=== PATIENT | female | born 1955 | race Caucasian/White ===

== ENCOUNTER 2019-01-14 17:43 | Inpatient (IN) | payer OTHER ==
[~2019-01-14] VITALS: Ht 170.2 cm; Wt 98.4 kg
[~2019-01-14 17:43] MED LIST: Aldactone100 MG PO; Inderal40 MG PO; LEVSOD50 PO; Lasix40 MG PO
[2019-01-14 19:11] LABS: BASOPHILS ABSOLUTE AUTO 0.15 K/mm3 (0.00-0.23); BASOPHILS PERCENT AUTO 2 % (0-2); EOSINOPHILS ABSOLUTE AUTO 0.05 K/mm3 (0.00-0.68); EOSINOPHILS PERCENT AUTO 1 % (0-6); Hematocrit 38.8 % (33.0-51.0); Hemoglobin 13.3 g/dL (11.5-16.0); IMMATURE GRAN ABSOLUTE AUTO 0.02 K/mm3 (0.00-0.10); IMMATURE GRAN PERCENT AUTO 0 % (0-1); LYMPHOCYTES ABSOLUTE AUTO 1.52 K/mm3 (0.84-5.20); LYMPHOCYTES PERCENT AUTO 21 % (21-46); MONOCYTES PERCENT AUTO 7 % (4-13); Mean Corpuscular HGB 32.9 pg (26.0-34.0); Mean Corpuscular HGB Conc 34.3 g/dL (31.5-36.5); Mean Corpuscular Volume 96 fL (80-100); Mean Platelet Volume 9.1 fL (9.1-12.4); NEUTROPHILS ABSOLUTE AUTO 5.09 K/mm3 (1.96-9.15); NEUTROPHILS PERCENT AUTO 70 % (41-73); Platelet Count 115 K/mm3 (150-400); RDW Coefficient Variation 14.6 % (11.7-14.2); RDW Standard Deviation 51.7 fL (35.1-46.3); Red Blood Cell Count 4.04 M/mm3 (3.80-5.20); White Blood Cell Count 7.33 K/mm3 (4.00-11.30)
[2019-01-14 19:30] LABS: Alanine Aminotransfer (ALT/SGP 48 U/L (12-78); Albumin, Blood 3.3 g/dL (3.4-5.0); Albumin/Globulin Ratio 0.6 (0.8-1.8); Alk Phos 98 U/L (50-136); Anion Gap 12 mmol/L (6-16); Aspartate Aminotrans (AST/SGOT 78 U/L (12-37); Blood Urea Nitrogen 9 mg/dL (8-24); Bun/Creatinine Ratio 16.6 (12.0-20.0); CO2, Blood 23 mmol/L (21-32); Calcium, Blood 8.6 mg/dL (8.5-10.1); Chloride, Blood 100 mmol/L (98-108); Creatinine, Blood 0.54 mg/dL (0.40-1.00); Ethanol (Alcohol), Blood, Med 60 mg/dL; Globulin, Blood 5.3 g/dL (2.2-4.0); Glomerular Filtration Rate >60 (60-); Glucose, Blood 110 mg/dL (70-99); Potassium, Blood 3.3 mmol/L (3.5-5.5); Sodium, Blood 135 mmol/L (136-145); Total Protein, Blood 8.6 g/dL (6.4-8.2)
[2019-01-14] MEDS ORDERED: FURO20 PO (21:48)
[2019-01-14] MEDS ORDERED: SPIR25 PO (21:48)
[2019-01-14] MEDS ORDERED: POTCHL20ER PO (21:48)
[2019-01-14] MEDS ORDERED: MAGN84 PO (21:49)
[2019-01-15] MEDS ORDERED: Omeprazole20 M1 PO (13:06)
[2019-01-15] MEDS ORDERED: Oyst-Cal-500500 MG PO (13:07)
[2019-01-15] MEDS ORDERED: THERA1 EACH PO (13:07)
[2019-01-15] MEDS ORDERED: VITAMIN C500 M1 PO (13:08)
[2019-01-15] MEDS ORDERED: Vitamin B Comple1 EA PO (13:09)
[2019-01-15] MEDS ORDERED: B-1100 MG PO (13:11)
[2019-01-15] MEDS ORDERED: Ibuprofen Ib200 MG PO (13:13)
--- NOTE | 2019-01-15 14:58 | NUR ---
pt arrived to [facility] 7 via gurney from ED, report from [facility]. pt able to stand and transfer herself to the bed, she is a/ox3, pleasant and cooperative with care, follows commands well, denies pain at this time, lungs are clear t/o, resp even and unlabored, no cough noted, hrr, tele in place running sr per monitor, see strip, no edema noted to b/l le, ppp+1, cap refill <3sec, vs stable, afebrile, iv site x2, sites are clear and patent, btx4, abd round soft nontender, voids without diff, skin c/w/d, maew, yina, oriented to room layout call system call light in reach.
--- NOTE | 2019-01-15 17:50 | NUR ---
pt sleeping when left undisturbed, wakes easily. tremors are minimal at this time. no complaints or changes call light in reach.
[2019-01-16 04:08] LABS: BASOPHILS ABSOLUTE AUTO 0.09 K/mm3 (0.00-0.23); BASOPHILS PERCENT AUTO 2 % (0-2); EOSINOPHILS ABSOLUTE AUTO 0.41 K/mm3 (0.00-0.68); EOSINOPHILS PERCENT AUTO 9 % (0-6); Hematocrit 32.1 % (33.0-51.0); Hemoglobin 10.9 g/dL (11.5-16.0); IMMATURE GRAN ABSOLUTE AUTO 0.01 K/mm3 (0.00-0.10); IMMATURE GRAN PERCENT AUTO 0 % (0-1); LYMPHOCYTES ABSOLUTE AUTO 1.55 K/mm3 (0.84-5.20); LYMPHOCYTES PERCENT AUTO 34 % (21-46); MONOCYTES ABSOLUTE AUTO 0.49 K/mm3 (0.16-1.47); MONOCYTES PERCENT AUTO 11 % (4-13); Mean Corpuscular HGB 33.7 pg (26.0-34.0); Mean Platelet Volume 9.5 fL (9.1-12.4); NEUTROPHILS ABSOLUTE AUTO 2.03 K/mm3 (1.96-9.15); NEUTROPHILS PERCENT AUTO 44 % (41-73); Platelet Count 70 K/mm3 (150-400); RDW Coefficient Variation 14.8 % (11.7-14.2); RDW Standard Deviation 53.7 fL (35.1-46.3); Red Blood Cell Count 3.23 M/mm3 (3.80-5.20); White Blood Cell Count 4.58 K/mm3 (4.00-11.30)
[2019-01-16 04:14] LABS: Mean Corpuscular Volume 99 fL (80-100)
[2019-01-16 04:29] LABS: Alanine Aminotransfer (ALT/SGP 31 U/L (12-78); Albumin, Blood 2.5 g/dL (3.4-5.0); Albumin/Globulin Ratio 0.6 (0.8-1.8); Alk Phos 74 U/L (50-136); Anion Gap 8 mmol/L (6-16); Aspartate Aminotrans (AST/SGOT 48 U/L (12-37); Blood Urea Nitrogen 10 mg/dL (8-24); Bun/Creatinine Ratio 14.6 (12.0-20.0); CO2, Blood 25 mmol/L (21-32); Calcium, Blood 8.2 mg/dL (8.5-10.1); Chloride, Blood 106 mmol/L (98-108); Creatinine, Blood 0.69 mg/dL (0.40-1.00); Glomerular Filtration Rate >60 (60-); Glucose, Blood 103 mg/dL (70-99); Potassium, Blood 3.8 mmol/L (3.5-5.5); Sodium, Blood 139 mmol/L (136-145); Total Protein, Blood 6.5 g/dL (6.4-8.2)
--- NOTE | 2019-01-16 06:31 | NUR ---
SHIFT SUMMARY PT ALERT AND ORIENTED X 3 THROUGHOUT SHIFT. SHE HAD NO TREMORS, ANXIETY, OR OTHER SYMPTOMS OF ACUTE WITHDRAWL. CIWA WAS 0 T/O SHIFT. PT SLEPT WELL DURING THE NIGHT AND WAS INDEPENDENT IN THE ROOM. PT WALKS WELL WITH FWW AND HER GAIT WAS OBSERVED TO BE STEADY AND WELL BALANCED. PT DENIED ANY UNMET NEEDS AND SHE USED THE CALL LIGHT APPROPRIATELY. PT HAD SOME NAUSEA EARLY IN THE SHIFT FOR WHICH SHE WAS PROVIDED ORDERED ANTI EMETIC. PT HAD NO ACUTE CHANGES TO VITALS DURING THE NIGHT. PT HAS BED IN THE LOWEST POSITION, CALL LIGHT IN REACH AND 2X SIDE RAILS IN PLACE. PT WILL CONTINUE TO BE MONITORED UNTIL HANDOFF TO DAYSHIFT RN.
[2019-01-16] MEDS ORDERED: FOLI1 PO (14:30)
[2019-01-16] MEDS ORDERED: ONDA4ODT MM (14:31)
--- NOTE | 2019-01-16 15:30 | NUR ---
PT ALERT AND ORIENTED. VS STABLE THROUGHOUT SHIFT. PT TO DISCHARGE HOME AND REFERRED TO DETOX FACILITY. IV TAKEN OUT AND INTACT. DISCHARGE INFORMATION PROVIDED ALONG WITH EDUCATION ABOUT ALCOHOL WITHDRAWAL AND NUTRITION. PT DENIES ANY QUESTIONS. PT TAKEN OUT BY WHEELCHAIR.
--- NOTE | 2019-01-16 15:35 | NUR ---
Adcance Directive Education conducted. Patient was lying in bed with family present in the room. I asked patient if she had interest in education surrounding the topic of advance directive and she stated that she did want to know more about it. I explained the importance and went through the advance directive booklet and explained how each section worked. I also explained about the notary and the process of filing it in the medical record. I asked if she had any questions and she said that she did not and she asked if I could bring her more booklets for other family members, and I did.
== END 2019-01-16 16:14 | disposition home or self-care (01) | DRG 897 ==
LOC: ER 17:43 → PCU 22:48 → ERHOLD 22:48 → PCU 01-15 14:16
PROVIDERS: Family Medicine; Physician Assistant; ADMIT Hospitalist
DX: F10.239 Alcohol dependence with withdrawal, unspecified (principal); I10 Essential (primary) hypertension; E87.6 Hypokalemia; E03.9 Hypothyroidism, unspecified; F41.9 Anxiety disorder, unspecified; Z87.891 Personal history of nicotine dependence; Z79.899 Other long term (current) drug therapy
CPT/HCPCS: 36415; 80053; 83690; 84484; 85025; 93005; 93010; 96365; 96366; 96367; 96375; 96376; 99285-25; G0008; G0480; J1650; J2060; J2405; J3411; J3475; J3480; J7042

== ENCOUNTER 2019-03-04 08:32 | Day surgery (SDC) | payer OTHER ==
[~2019-03-04 08:32] MED LIST changes: +B-1100 MG PO; +FOLI1 PO; +FURO20 PO; +Ibuprofen Ib200 MG PO; +MAGN84 PO; +ONDA4ODT MM; +Omeprazole20 M1 PO; +Oyst-Cal-500500 MG PO; +POTCHL20ER PO; +SPIR25 PO; +THERA1 EACH PO; +VITAMIN C500 M1 PO; +Vitamin B Comple1 EA PO
== END 2019-03-04 23:02 | disposition home or self-care (01) ==
LOC: MOI US 08:32 → MOI MAM 09:00 → MOI US 09:00
DX: C50.911 Malignant neoplasm of unspecified site of right female breast (principal); Z17.0 Estrogen receptor positive status [ER+]
CPT/HCPCS: 19083; 76642; 77065; 88305; 88342; 88360; A4648

== ENCOUNTER 2019-04-08 08:15 | Day surgery (SDC) | payer OTHER ==
[~2019-04-08 08:15] MED LIST changes: +ALBU90OI; +Inderal40 MG; +PRED20
== END 2019-04-08 22:36 | disposition home or self-care (01) ==
LOC: MOI US 08:15
DX: C50.211 Malignant neoplasm of upper-inner quadrant of right female breast (principal)
CPT/HCPCS: 19285; 77065

== ENCOUNTER 2019-04-12 07:55 | Day surgery (SDC) | payer OTHER ==
[~2019-04-12] VITALS: Ht 170.2 cm; Wt 102.6 kg
--- NOTE | 2019-04-12 11:42 | NUR ---
04/12/19 1142 Steffanie Kramer PT C/O 12/16 PAIN IN HER RIGHT BREAST UPON ARRIVAL TO SDU. ICE PACK APPLIED. PT EATING PUDDING AT THIS TIME. RN WILL MEDICATE WITH PO MEDS REQUESTED BY PT ONCE SHE GETS SOMETHING IN HER STOMACH. PT CONVERSATING WITH SISTER AND AT CHAIRSIDE. BREAST BINDER IN PLACE. PT DENIES NAUSEA AT THIS TIME.
== END 2019-04-12 12:33 | disposition home or self-care (01) ==
LOC: ORSCSDS 07:55 → RAD 08:00 → ORSCSDS 08:00
PROVIDERS: Surgery
PROC: 07B50ZX Excision of Right Axillary Lymphatic, Open Approach, Diagnostic (ICD-10-PCS; principal; 2019-04-12 10:15)
PROC: 0HBT0ZZ Excision of Right Breast, Open Approach (ICD-10-PCS; principal; 2019-04-12 10:15)
DX: C50.211 Malignant neoplasm of upper-inner quadrant of right female breast (principal); D36.0 Benign neoplasm of lymph nodes; I10 Essential (primary) hypertension; J45.909 Unspecified asthma, uncomplicated; K70.30 Alcoholic cirrhosis of liver without ascites; E03.9 Hypothyroidism, unspecified; E66.9 Obesity, unspecified; Z68.35 Body mass index [BMI] 35.0-35.9, adult; F17.210 Nicotine dependence, cigarettes, uncomplicated; Z79.899 Other long term (current) drug therapy
CPT/HCPCS: 76098; 78195; 88307; 88342; A9520; J0690; J1885; J2250; J2370; J2704; J3010; J7120; Q9968

== ENCOUNTER 2021-09-15 12:44 | Inpatient (IN) | payer OTHER, MEDICARE ==
[~2021-09-15] VITALS: Ht 170.2 cm; Wt 117.1 kg
[~2021-09-15 12:44] MED LIST changes: +CALCIUM GLUCONA PO; -FURO20 PO; -Inderal40 MG; -LEVSOD50 PO; +MAGNESIUM OXID400 M1 PO; -Omeprazole20 M1 PO; -SPIR25 PO; +THERA-D2000 UNIT PO
[2021-09-15 14:20] LABS: BASOPHILS ABSOLUTE AUTO 0.07 K/mm3 (0.00-0.23); BASOPHILS PERCENT AUTO 0 % (0-2); EOSINOPHILS ABSOLUTE AUTO 0.34 K/mm3 (0.00-0.68); EOSINOPHILS PERCENT AUTO 2 % (0-6); Hematocrit 30.2 % (33.0-51.0); Hemoglobin 11.2 g/dL (11.5-16.0); IMMATURE GRAN ABSOLUTE AUTO 0.14 K/mm3 (0.00-0.10); IMMATURE GRAN PERCENT AUTO 1 % (0-1); LYMPHOCYTES PERCENT AUTO 6 % (21-46); MONOCYTES ABSOLUTE AUTO 1.23 K/mm3 (0.16-1.47); MONOCYTES PERCENT AUTO 7 % (4-13); Mean Corpuscular HGB Conc 37.1 g/dL (31.5-36.5); Mean Corpuscular Volume 100 fL (80-100); NEUTROPHILS ABSOLUTE AUTO 13.86 K/mm3 (1.96-9.15); NEUTROPHILS PERCENT AUTO 83 % (41-73); Platelet Count 107 K/mm3 (150-400); RDW Coefficient Variation 14.3 % (11.7-14.2); RDW Standard Deviation 51.8 fL (35.1-46.3); Red Blood Cell Count 3.03 M/mm3 (3.80-5.20); White Blood Cell Count 16.64 K/mm3 (4.00-11.30)
[2021-09-15 14:40] LABS: Alanine Aminotransfer (ALT/SGP 43 U/L (12-78); Albumin, Blood 1.9 g/dL (3.4-5.0); Albumin/Globulin Ratio 0.4 (0.8-1.8); Alk Phos 102 U/L (50-136); Anion Gap 9 mmol/L (6-16); Aspartate Aminotrans (AST/SGOT 82 U/L (12-37); Bilirubin, Total 4.5 mg/dL (0.1-1.0); Blood Urea Nitrogen 25 mg/dL (8-24); Bun/Creatinine Ratio 10.7 (12.0-20.0); CO2, Blood 30 mmol/L (21-32); Chloride, Blood 81 mmol/L (98-108); Creatinine, Blood 2.34 mg/dL (0.40-1.00); Ethanol (Alcohol), Blood, Med <3 mg/dL; Globulin, Blood 4.8 g/dL (2.2-4.0); Glomerular Filtration Rate 21 (60-); Glucose, Blood 114 mg/dL (70-99); Potassium, Blood 4.6 mmol/L (3.5-5.5); Sodium, Blood 120 mmol/L (136-145); Total Protein, Blood 6.7 g/dL (6.4-8.2); Troponin I <0.015 ng/mL (0.000-0.040)
[2021-09-15 14:49] LABS: SARS-Cov-2 (COVID-19) PCR, MMC NEGATIVE (NEGATIVE)
[2021-09-15 15:20] LABS: Source, Urine Catheter
[2021-09-15 15:25] LABS: Appearance, Urine Clear (Clear); Blood, Urine 1+ (Neg); Color, Urine Amber (P-Yellow); Glucose Qualitative, Urine Neg (Neg); Ketones, Urine 1+ (Neg); Leukocyte Esterase, Urine 1+ (Neg); Nitrite, Urine Neg (Neg); Protein, Urine 1+ (Neg); Specific Gravity, Urine 1.015 (1.003-1.022); Urobilinogen, Urine 2+ (Normal)
[2021-09-15 16:01] LABS: Bilirubin, Urine 2+ (Neg)
[2021-09-15 16:08] LABS: Bacteria Mod /hpf; Hyaline Casts 0-2 /lpf (0-2); Red Blood Cells, Urine 0-2 /hpf (0-2); Squamous Epithelial Cells Few /hpf (Few)
[2021-09-15] MEDS ORDERED: FURO40 PO (16:29)
[2021-09-15] MEDS ORDERED: Inderal40 MG PO (16:30)
[2021-09-15] MEDS ORDERED: EUTHYROX50 MCG PO (16:30)
[2021-09-15] MEDS ORDERED: ALDACTONE100 MG PO (16:30)
[2021-09-15] MEDS ORDERED: AMLO5 PO (16:31)
[2021-09-15] MEDS ORDERED: ANASTROZOLE1 M6 PO (16:31)
[2021-09-15] MEDS ORDERED: Omeprazole20 M1 PO (17:22)
[2021-09-15 19:09] LABS: Creatine Kinase MB 3.5 ng/mL (0.0-3.6)
[2021-09-15 19:14] LABS: Bun/Creatinine Ratio 11.1 (12.0-20.0); Calcium, Blood 7.9 mg/dL (8.5-10.1); Creatinine, Blood 2.35 mg/dL (0.40-1.00); Potassium, Blood 4.4 mmol/L (3.5-5.5)
[2021-09-15 22:56] LABS: Bun/Creatinine Ratio 11.9 (12.0-20.0); Calcium, Blood 7.7 mg/dL (8.5-10.1); Creatinine, Blood 2.36 mg/dL (0.40-1.00); Potassium, Blood 4.4 mmol/L (3.5-5.5)
[2021-09-16 03:39] LABS: Albumin, Blood 1.6 g/dL (3.4-5.0); Albumin/Globulin Ratio 0.4 (0.8-1.8); Bilirubin, Total 3.3 mg/dL (0.1-1.0); Bun/Creatinine Ratio 12.6 (12.0-20.0); Calcium, Blood 7.7 mg/dL (8.5-10.1); Creatinine, Blood 2.22 mg/dL (0.40-1.00); Free Thyroxine 1.52 ng/dL (0.70-1.60); Globulin, Blood 4.4 g/dL (2.2-4.0); Potassium, Blood 4.2 mmol/L (3.5-5.5); Thyroid Stimulating Hormone 2.44 uIU/mL (0.360-4.800)
[2021-09-16 06:48] LABS: Bun/Creatinine Ratio 13.7 (12.0-20.0); Calcium, Blood 7.7 mg/dL (8.5-10.1); Creatinine, Blood 1.97 mg/dL (0.40-1.00); Potassium, Blood 4.1 mmol/L (3.5-5.5)
--- NOTE | 2021-09-16 10:39 | NUR ---
URINARY RETENTION PT STATES SHE HAS NOT URINATED ALL NIGHT. BLADDER SCAN REVEALLED 454 CC AFTER ATTEMPTING TO VOID WITH NO SUCCESS. DR. MAHAN NOTIFIED AND ORDERED TO RECHECK BLADDER VOLUME IN 2 HOURS AND INSERT INDWELLING CATHETER IF BLADDER VOLLUME IS OVER 500.
[2021-09-16 12:40] LABS: Source, Urine Catheter
[2021-09-16 12:51] LABS: Appearance, Urine Clear (Clear); Blood, Urine 1+ (Neg); Color, Urine Amber (P-Yellow); Glucose Qualitative, Urine Neg (Neg); Ketones, Urine Neg (Neg); Leukocyte Esterase, Urine 1+ (Neg); Nitrite, Urine Neg (Neg); Protein, Urine Neg (Neg); Specific Gravity, Urine 1.015 (1.003-1.022); Urobilinogen, Urine 3+ (Normal)
[2021-09-16 13:00] LABS: Bilirubin, Urine 2+ (Neg)
[2021-09-16 13:05] LABS: Red Blood Cells, Urine 0-2 /hpf (0-2); Squamous Epithelial Cells Few /hpf (Few)
[2021-09-16 13:06] LABS: Bacteria Few /hpf
--- NOTE | 2021-09-16 16:47 | NUR ---
SHIFT SUMMARY QUIROZ INSERTED TODAY FOR URINARY RETENTION. DARK/CAROL URINE IN RETURN. PT REPOSITIONED T/O THE DAY TO HELP WITH WOUND HEALING AND COMFORT. IV FLUIDS INCREASED TO 200ML/HR. PT TOLERATING THIS SO FAR. PT PLEASANT ANND RESTING IN BED CURRENTLY. NO OTHER ACUTE CHANGES IN ASSESSMENT AT THIS TIME. VS REVIEWED.
[2021-09-17 06:12] LABS: Calcium, Blood 7.7 mg/dL (8.5-10.1); Creatinine, Blood 1.16 mg/dL (0.40-1.00); Potassium, Blood 3.9 mmol/L (3.5-5.5)
--- NOTE | 2021-09-17 06:35 | NUR ---
SHIFT SUMMARY PT RESTING ON BED QUIETLY. NO ACUTE DISTRESS AT THIS TIME. PT BEING CLEAN . CALL LIGHT DERREK REACH
[2021-09-17 15:01] LABS: Bun/Creatinine Ratio 20.3 (12.0-20.0); Calcium, Blood 7.4 mg/dL (8.5-10.1); Creatinine, Blood 0.93 mg/dL (0.40-1.00)
--- NOTE | 2021-09-17 18:07 | NUR ---
SHIFT SUMMARY: PT A/O X 4 PLEASANT AND COOPERATIVE WITH CARE. PT CONTINUES TO HAVE INDWELLING CATHETER WITH DARK YELLOW URINE DRAINING. PT CONTINUES TO HAVE REDNESS AND EXCORIATION TO GROIN AREA AND BOTTOM. IV FLUIDS CONTINUE AT 200 ML PER HOUR. LS CLEAR THIS MORNING. NO EDEMA TO LOWER EXTREMITIES. PT NA LEVEL UNCHANGED AT 2 PM CHECK. ENCOURAGED PT TO SALT DINNER TIME FOOD AND PROVIDED SALT PACKS PT STATED SHE ONLY GETS ONE SALT PACK ON HER TRAY. NO ACUTE CHANGES THROUGHOUT SHIFT.
--- NOTE | 2021-09-18 04:06 | NUR ---
SHIFT SUMMARY ADMITTED FOR DEHYDRATION/HYPONATREMIA. DNR CODE. QUIROZ IN PLACE FOR RETENTION. TELEMETRY: NSR @ 74 BPM. NS INFUSING @ 200 ML/HR. IV ANTIBIOTICS ARE SCHEDULED. SHE LIVES W/HER SPOUSE. SHE IS BEDBOUND. HER GROIN AND BUTTOCKS ARE EXCORIATED, MEDICATED PER EMAR.
[2021-09-18 05:26] LABS: Anion Gap 5 mmol/L (6-16); Blood Urea Nitrogen 16 mg/dL (8-24); Bun/Creatinine Ratio 20.1 (12.0-20.0); CO2, Blood 26 mmol/L (21-32); Calcium, Blood 7.6 mg/dL (8.5-10.1); Chloride, Blood 98 mmol/L (98-108); Glomerular Filtration Rate >60 (60-); Glucose, Blood 111 mg/dL (70-99); Potassium, Blood 3.9 mmol/L (3.5-5.5); Sodium, Blood 129 mmol/L (136-145)
[2021-09-18] MEDS ORDERED: ALBU90OI INH (13:50)
--- NOTE | 2021-09-18 16:59 | NUR ---
END OF SHIFT SUMMARY: PATIENT REPORTED PAIN IN HER RIGHT HIP AND BUTTOCKS THIS MORNING. MEDICATED PER PRNS AND ASSISTED PATIENT WITH REPOSITIONING. PATIENT IS VERY WEAK, ESPECIALLY IN HER LEGS. PATIENT IS ENCOURAGED TO WORK WITH STAFF AND IS APPRECIATIVE OF THE CARE. PATIENT CONTINUES TO TOLERATE IV FLUIDS. LUNG SOUNDS REMAINED CLEAR THROUGHOUT SHIFT. NO CHANGES TO EDEMA IN BLE AND LEFT ARM NOTED THROUGHOUT SHIFT. LEFT ARM AND LEGS ELEVATED THROUGHOUT SHIFT. PATIENT REPORTED SOME SHORTNESS OF BREATH DURING BED BATH, THAT RESOLVED WHEN AT REST. PATIENT REQUESTED HER HOME ALBUTEROL BE AVAILABLE AN INPATIENT. DISCUSSED WITH DR. LANIER AND NEW ORDER PLACED. QUIROZ CONTINUES TO DRAIN FREELY DARK YELLOW URINE. PATIENT DENIES DISCOMFORT (ITCHING, BURNING, FEELINGS OF BLADDER FULLNESS) WITH THE QUIROZ.
--- NOTE | 2021-09-19 04:30 | NUR ---
SHIFT SUMMARY ADMITTED FOR DEHYDRATION/HYPONATREMIA. DNR CODE. PLAN IS FOR DC TO SNF, HOPEFULLY ON MONDAY. QUIROZ IN PLACE FOR RETENTION. NS IS STILL INFUSING @ 200 ML/HR. SHE IS NOT SOB, LUNGS WERE STILL CLEAR. SHE WAS LIVING AT HOME WITH HER SPOUSE. SHE IS A&O 4. SHE HAS NOT GOTTEN OUT OF BED. HER GROIN AND BUTTOCKS ARE EXCORIATED.
--- NOTE | 2021-09-19 10:57 | NUR ---
CALLED DR LANIER- PT HAS HAD IVF INFUSING FOR THE PAST TWO+ DAYS AT A RATE OF 200 ML/HR. PT CURRENTLY HAS LEFT ARM DEPENDENT EDEMA THAT IS NON-PITTING. SODIUM LEVELS HAVE BEEN ON THE RISE. BLE EDEMA +2. DR MARIE, RECIEVED AN ORDER FOR DC IVF AT THIS TIME. IV SL. LEFT ARM PLACED ON THREE PILLOWS ABOVE THE LEVEL OF THE HEART.
[2021-09-19 11:20] LABS: Anion Gap 5 mmol/L (6-16); Blood Urea Nitrogen 10 mg/dL (8-24); Bun/Creatinine Ratio 15.2 (12.0-20.0); CO2, Blood 25 mmol/L (21-32); Calcium, Blood 7.6 mg/dL (8.5-10.1); Chloride, Blood 103 mmol/L (98-108); Creatinine, Blood 0.66 mg/dL (0.40-1.00); Glomerular Filtration Rate >60 (60-); Glucose, Blood 127 mg/dL (70-99); Potassium, Blood 3.8 mmol/L (3.5-5.5); Sodium, Blood 133 mmol/L (136-145)
--- NOTE | 2021-09-19 13:47 | NUR ---
CALLED DR LANIER- NEW ORDER RECIEVED FOR PO LASIX WITH START DATE BEING TOMORROW VERIFIED PLAN IS TO START THIS MEDICATION TOMORROW AND NOT NOW. PO LASIX TO START TOMORROW.
--- NOTE | 2021-09-19 18:21 | NUR ---
SHIFT SUMMARY- PT ALERT AND ORIENTED X4. CURRENTLY SITTING UP IN BED CALL LIGHT IN REACH. LUNG SOUNDS DIM IN THE BASES, NO S&S OF RESPIRATORY DISTRESS NOTED A C/O MINOR (PER PT) ACHES IN HIPS AND BACK THIS AM, RATED 6/10. MEDICATED PER EMAR. PT IS EDEMATOUS, LEFT ARM WAS INFUSING NS THIS MORNING, SWELLING HAS REDUCED ALOTH T/O THE AFTERNOON AND INTO THE EVENING. SPOKE TO RT THEY ARE AWARE OF THE PT AND HAVE HER ON THEIR SERVICE IF NEEDED. PT BOTTOM IS EXCORIATED AND BLEEDING OVER THE ENTIRE SURFACE, PT STATED IT HAS IMPROVED. QUIROZ CATH IS IN PLACE FOR RETENTION BUT MAY NEED TO BE CONSIDERED FOR WOUND HEALING WELL. WILL CTM AND PASS ON TO NIGHT RN IN BEDSIDE REPORT.
--- NOTE | 2021-09-20 05:04 | NUR ---
PT VSS. AOX4. NO C/O OF PAIN THIS SHIFT.FC IN PLACE DRAINING YELLOW URINE. EXCORIATION WITH BLEEDING NOTED ON BUTTOCKS. POWDER APPLIED TO AREA. PT HAS SLEPT FOR MORE THAN 8 HOURS THIS SHIFT. EDEMA NOTED ON DANIELA UPPPER AND LOWER EXTREMITY. PER PT THIS HAS IMPROVD NO ACUTE ISSUES NOTED. SAFETY MEASURES IN PLACE, CALL LIGHT IN REACH
--- NOTE | 2021-09-20 17:17 | NUR ---
SHIFT SUMMARY NO IV ACCESS ORDER OBTAINED TODAY FROM DR. ARREDONDO. PT STARTED ON BOWEL CARE TO HELP WITH CONSITPATION. NO BM THIS ADMISSION YET. CATH CARE COMPLETED. PT AWAITING ON BED AT SNF. WORKED WITH PT/OT. NO OTHER ACUTE CHANGES IN ASSESSMENT AT THIS TIME. VS REVIEWED. CALL LIGHT IN REACH.
--- NOTE | 2021-09-21 06:08 | NUR ---
AOX4. VSS. PRN MED GIVEN X1 FOR C/O OF MILD R HIP PAIN. PT HAD SMALL BM THIS SHIFT. FC PATENT WITH DARK YELLOW URINE. PERINEAL AREA IS EXCORIATED WITH BLEEDING NOTED. POWDER APPLIED AND ATTEMPTS MADE TO TURN Q2HR THIS SHIFT. BRUSING NOTED ON ABD PER PT CAUSED BY ANTICOAGULANTS. NO OTHER ISSUES NOTED. SAFETY MEASURES IN PLACE, CALL LIGHT IN REACH
--- NOTE | 2021-09-21 16:40 | NUR ---
SHIFT SUMMARY QUIROZ REMAINS IN PLACE FOR RETENTION AND WOUND HEALING. NYSTATIN FOR YEASTY FOLDS. ESCORIATION BEING KEPT CLEAN AND A DRY POSSIBLE. PT WORKED WITH PT/OT TODAY AND WAS ABLE TO STAND AND TRANSFER TO RECLINER WITH MODERATE 2P ASSIST. PT STAYED UP IN CHAIR FOR APPROX AN HOUR AND A HALF. NO OTHER ACUTE CHANGES IN ASSESSMENT AT THIS TIME. VS REVIEWED. MEDICATED WITH TYLENOL TWICE THIS SHIFT.
--- NOTE | 2021-09-22 04:21 | NUR ---
SHIFT SUMMARY NO ACUTE CHANGES TO REPORT THIS SHIFT. PT HAS RESTED MOST OF THE NIGHT. MEDICATED FOR CHRONIC RIGHT LEG PAIN WITH TYLENOL. ASSESSMENT REMAINS UNCHANGED, PT STILL WAITING FOR PLACEMENT AT THIS TIME.
--- NOTE | 2021-09-22 12:13 | NUR ---
BLADDER TRAINING INITIATED AT 1205 BY THIS NURSE ON 09/22/21
--- NOTE | 2021-09-22 17:02 | NUR ---
SHIFT SUMMARY PT AXO, PLEASANT AND COOPERATIVE WITH CARE. BLADDER TRAINING INITIATED AT 1205 PER ORDER. PT HAS SUCCESSFULLY FELT THE URGE TO VOID X1 SINCE. MEDICATED FOR PAIN X1 THIS SHIFT. PT COMFORTABLY SLEEPING AT THIS TIME. PT REFUSED OOB WHEN ENCOURAGED. PATIENT HAS EXCORIATED BOTTOM AND CYNTHIA AREA AND BRUISING TO ABDOMEN. BED IN LOW POSITION, CALL LIGHT WITHIN REACH. VSS.
--- NOTE | 2021-09-23 06:09 | NUR ---
SHIFT SUMMARY PATIENT ALERT AND ORIENTED. MEDICATED PER EMAR FOR PAIN. HAD NO COMPLAINTS OF SHORTNESS OF BREATH. NO ACUTE ISSUES NOTED OVERNIGHT. BED IN LOWEST POSITION WITH WHEELS LOCKED AND ALARM ON. CALL LIGHT WITHIN REACH. REPORT GIVEN TO ONCOMING RN.
--- NOTE | 2021-09-23 09:00 | NUR ---
SPOKE TO DR CIFUENTES- PT HAS A QUIROZ IN PLACE FOR RETENTION CURRENTLY, ORDER FOR BLADDER TRAINING NOT YET STARTED D/T PT EXCORIATION WOUNDS TO BUTTOX AND LABIA. DR AWARE OF THE WOUND. QUIROZ TO BE LEFT IN PLACE FOR WOUND HEALING, NEW ORDER RECIEVED FOR WWOUND CARE CONSULT. CALLED [facility] AND SPOKE TO ROSANA ABOUT THE CONSULT, SHE IS AWARE, NO DR TODAY SO CONSULT WILL LIKELY HAPPEN TOMORROW. WWILL CLEAN THE WWOUNDS AND GET FRESH PICTURES FOR THE PT CHART.
--- NOTE | 2021-09-23 18:28 | NUR ---
SHIFT SUMMARY- PT HEPARIN DC'D TODAY SWITCHED TO LOVENOX. PT WAS ABLE WITH 2PA TO GET UP TO THE BEDSIDE COMODE AND HAD A MED BM. 2PA TO THE BED FROM THE BSC WAS A LITTLE MORE DIFFICULT FOR THE PT. SHE WAS A BIT SHAKEY AFTER THE TRANSFER. MEDICATED ONCE FOR PAIN WITH TYLENOL. WOUND CONSULT PLACED PLAN FOR THEM TO SEE HER TOMORROW. NEW PHOTOS TAKEN TODAY OF THE PT WOUNDS. PT CURRENTLY IN BED, CALL LIGHT IN REACH, NO S&S OF DISTRESS NOTED. WILL PASS ON TO NIGHT RN IN BEDSIDE REPORT.
--- NOTE | 2021-09-24 05:35 | NUR ---
SHIFT SUMMARY PATIENT ALERT AND ORIENTED. WAS MEDICATED PER EMAR FOR PAIN. NO COMPLAINTS OF SHORTNESS OF BREATH. NO ACUTE ISSUES NOTED OVERNIGHT. BED IN LOWEST POSITION WITH WHEELS LOCKED AND ALARM ON. CALL LIGHT WITHIN REACH. REPORT GIVEN TO ONCOMING RN.
--- NOTE | 2021-09-24 12:15 | NUR ---
Wound care recommendation: Nystatin cream or poweder to roberto carlos area with each brief change. Keep Pt clean and dry. Offload Q2hrs
--- NOTE | 2021-09-24 15:16 | NUR ---
SHIFT SUMMARY PT AWAKE AT START OF SHIFT, RESTING QUIETLY WATCHING TV. PT WAITING FOR INSURANCE APPROVAL TO GO TO SNF. DR CIFUENTES HERE TO SEE PT THIS AM, INSTRUCTING TO START BLADDER TRAINING AND THEN D/C QUIROZ. PT INCONTINENT OF BOWEL A COUPLE OF TIMES; PT CLEANED AND CHANGED. GROIN, CYNTHIA AREA, AND COCCYX RED AND EXCORIATED. NYSTATIN CREAM AND POWDER APPLIED. QUIROZ CATH D/C'D. PT ASSISTED UP TO BSC FOR BM AND VOID. 2P ASSIST USING GB. PT THINKS SHE CAN ONLY WALK A COUPLE OF STEPS. NEEDS ENCOURAGEMENT TO BECOME MORE MOBILE AND DO SOME THINGS FOR HERSELF. CALL LT IN REACH. ABLE TO MAKE NEEDS KNOWN.
--- NOTE | 2021-09-25 00:48 | NUR ---
ATTENDS CHANGED. BLEEDING SORES TO BUTTOCKS AND LABIA NOTED. WILL CONTINUE TO MONITOR AND WILL PASS INFO ON TO DAY SHIFT RN.
--- NOTE | 2021-09-25 03:32 | NUR ---
SHIFT SUMMARY VSS. PT A & O X 4 AND IS PLEASANT. PT ON ROOM AIR. PT INCONTINENT OF URINE. BLEEDING SORES ON BUTTOCKS AND LABIA. NYSTATIN CREAM APPLIED PER EMAR. PT REPOSITIONED SEVERAL TIMES DURING SHIFT. PT COMFORTABLE AND SEEMS TO BE SLEEPING AT THIS TIME. CALL LIGHT IS WITHIN REACH AND WILL CONTINUE TO MONITOR.
--- NOTE | 2021-09-25 04:38 | NUR ---
3 MEPILEX DRESSINGS PLACED TO PT'S BLEEDING BUTTOCKS WOUNDS
[2021-09-25 12:37] LABS: Anion Gap 8 mmol/L (6-16); Blood Urea Nitrogen 11 mg/dL (8-24); Bun/Creatinine Ratio 14.6 (12.0-20.0); CO2, Blood 25 mmol/L (21-32); Calcium, Blood 8.4 mg/dL (8.5-10.1); Chloride, Blood 104 mmol/L (98-108); Creatinine, Blood 0.75 mg/dL (0.40-1.00); Glomerular Filtration Rate >60 (60-); Glucose, Blood 141 mg/dL (70-99); Potassium, Blood 3.9 mmol/L (3.5-5.5); Sodium, Blood 137 mmol/L (136-145)
--- NOTE | 2021-09-25 17:14 | NUR ---
PATIENT IS ALERT AD ORIENTED AND COOPERATIVE WITH CARE. SHE USED THE BSC TWICE THIS SHIFT/ SHE TRANSFERRED 1PA TO THE RECLINER AND SAT THERE FOR A FEW HOURS AFTER LUNCH. SHE WORKED WITH PT TODAY. CONTINENT OF BOWEL AND BLADDER THIS SHIFT. WOUND CARE TO BUTTOCKS AND LABIA COMPLETE WITH EACH ATTENDS CHANGE. WILL CONTINUE TO MONITOR
--- NOTE | 2021-09-26 03:57 | NUR ---
SHIFT SUMMARY NO ACUTE CHANGES DURING SHIFT. MEPILEX STILL IN PLACE ON BUTTOCKS. MEDICATED PER EMAR FOR PAIN. PT STILL HAVING TIMES OF INCONTINENCE. A&O X 4. CALL LIGHT WITHIN REACH. WILL CONTINUE TO MONITOR.
--- NOTE | 2021-09-26 13:33 | NUR ---
ALERT. ORIENTED.EXCORIATED BUTTOCK AND LABIA. CLEANED AFTER TOILETING WITH MEPILEX TO BUTTOCK AREA. ONE INCONTINENT OF BLADDER. BRUSING T/O BUE AND TRUNK AREA. EDEMA BLE WITH FLAKEY SKIN. AWAITING PLACEMENT SNF. WCTM
--- NOTE | 2021-09-26 23:51 | NUR ---
PT COMPLAINING OF ITCHY KNEES. ALOE LOTION APPLIED TO BOTH KNEES.
--- NOTE | 2021-09-27 04:20 | NUR ---
SHIFT SUMMARY NO ACUTE CHANGES. PT USED BED MANLEY A FEW TIMES THIS EVENING. STILL SOME URINARY INCONTINENCE. MEPILEX DRESSINGS STILL TO BUTTOCKS. A&O X4. PT RESTING IN BED AND CALL LIGHT WITHIN REACH. WILL CONTINUE TO MONITOR. HAD SOME PAIN EARLIER, MEDICATED WITH TYLENOL PER EMAR.
--- NOTE | 2021-09-27 07:30 | NUR ---
ASSUMED CARE OF PT- REPORT RECIEVED FROM NIGHT RN. PT IN BED LAYING HOB, SLIGHTLY ELEVATED. PT ALERT AND ORIENTED. PT UNABLE TO HAVE A BM IN THE BEDPAN. UP 1PA TO THE BSC, PT TOLLERATED WELL. WOUND CARE COMPLETED THE DRESSINGS WERE SOILED. CLLEANED AND DRIED AREA, FRESH MEPILEX APPLIED. PT TOLLERATED ALL WELL. LINNEN CHANGE COMPLETED. CAME IN TO SEE THE PT AT THE TIME OF WOUND CARE AND IS AWARE OF THE PROGRESS. WWOUNDS APPEAR TO BE GREATLY IMPROVED SINCE MONDAY. PLAN IS TO DC PT TO SNF WHEN A BED IS AVAILABLE. WWILL CTM AND CHANGE DDRESSINGS NEEDED. BOWEL CARE HELD THIS MORNING, PER REPORT PT HAVING FREQUENT INCONTINENT STOOLS. PT DID HAVE A FORMED BROWN STOOL ON THE BSC AT THIS TIME.
[2021-09-27] MEDS ORDERED: NYSTATIN15 GM TOP (14:56)
[2021-09-27] MEDS ORDERED: ONDA4ODT MM (14:57)
[2021-09-27] MEDS ORDERED: MIRALAX17 GM PO (14:57)
[2021-09-27 15:16] LABS: Influenza A, PCR NEGATIVE (NEGATIVE); Influenza B, PCR NEGATIVE (NEGATIVE); Resp Syncytial Virus, PCR NEGATIVE (NEGATIVE)
[2021-09-27 15:23] LABS: SARS-Cov-2 (COVID-19) PCR, MMC POSITIVE (NEGATIVE)
--- NOTE | 2021-09-27 17:51 | NUR ---
SHIFT SUMMARY PT IS AOX4. THIS RN RECEIVED CARE OF PT THIS JAGUAR. PT DENIES PAIN, N/V, SOB. WOUND CARE DONE BY PRIOR RN THIS SHIFT. PT IS 2 ASSIST IN ROOM. PT APPETITE IS GOOD. PLAN IS TO RE-EVALUATE PLACEMENT VS HOME TOMORROW. PT IS IN BED, CALL LIGHT IN REACH, LOW POSITION.
--- NOTE | 2021-09-28 05:38 | NUR ---
SHIFT SUMMARY: AOX3, COOPERATIVE. COVID POSITIVE WITH NO SX AT THIS TIME. LS DIMINISHED. GOOD FLUID INTAKE BUT HAS POOR OUTPUT. GOT UP SEVERAL TIMES TO VOID WITH VERY SCANT AMOUNTS. BLADDER SCANS ONLY SHOWING 100-200. BLE LYMPHEDEMA 3+. EXCORIATION TO BOTTOM, DRESSINGS CHANGED. COULD BENIFIT FROM REPEAT LABS AND PT/OT AT HOME. VS WNL, AFEBRILE. NO FURTHER CHANGES TO REPORT. CALL LIGHT IN REACH.
--- NOTE | 2021-09-28 14:52 | NUR ---
DISCHARGE PT DISCHARGED HOME WITH HOME HEALTH. TRANSPORTED IN WHEELCHAIR WITH PERSONAL BELONGINGS TO DOWN TO [facility] WHERE MET HER WITH VEHICLE. DISCHARGE EDUCATION DONE PRIOR TO LEAVING ROOM. NO IV ACCESS. MEDS FAXED TO PT PHARMACY. PT TO MAKE FOLLOW UP APPOINTMENT WITH PCP.
--- NOTE | 2021-09-28 15:51 | NUR ---
Received referral from nurse customer care coordinator (Kim Haq) on 09/28/2021. Patient discharged today- 09/28/2021 with orders for home health and elected [facility]. Contacted patient at home number provided on demographic sheet to further discuss the above. Patient is agreeable to the above. Discussed homebound status definition with patient. Patient verbalized understanding. Discussed what home health is vs what it is not (in home caregivers/housekeeping). Patient verbalized understanding. Discussed the next steps in the process of an initial assessment to determine frequency of visits. Again patient verbalized understanding. Offered a chance for patient to ask questions regarding the above of which there were none. Gathered all supporting documentation for referral (face sheet, face to face, med list, H&P, discharge summary, and most recent PT assessment) and sent to [facility] for review. No further interventions required. Vero Treviño Referral Liaison
[2021-09-29 15:20] LABS: CORONAVIRUS (COVID19) CSH-NRL Negative (Negative)
== END 2021-09-28 14:51 | disposition home health service (06) | DRG 683 ==
LOC: ER 12:44 → MEDS 12:45 → ERHOLD 12:45 → MEDS 21:50
PROVIDERS: Emergency Medicine; Family Medicine; Hospitalist; ADMIT Internal Medicine
DX: N17.9 Acute kidney failure, unspecified (principal); N39.0 Urinary tract infection, site not specified; E87.1 Hypo-osmolality and hyponatremia; B37.49 Other urogenital candidiasis; E03.9 Hypothyroidism, unspecified; E78.1 Pure hyperglyceridemia; Z66 Do not resuscitate; Z23 Encounter for immunization; F10.10 Alcohol abuse, uncomplicated; J84.10 Pulmonary fibrosis, unspecified; K70.30 Alcoholic cirrhosis of liver without ascites; D64.9 Anemia, unspecified; I10 Essential (primary) hypertension; Z98.890 Other specified postprocedural states; Z79.899 Other long term (current) drug therapy; E86.0 Dehydration; E66.01 Morbid (severe) obesity due to excess calories; Z87.891 Personal history of nicotine dependence; Z68.39 Body mass index [BMI] 39.0-39.9, adult; W18.30XA Fall on same level, unspecified, initial encounter
CPT/HCPCS: 0241U; 36415; 71045; 80048; 80053; 81001; 82550; 82553; 82607; 84439; 84443; 84484; 85025; 87086; 90686; 93005; 93010; 94760; 96365; 96372; 97110; 97161; 97165; 97530; 97530-CQ; 97535; 99285-25; A9270; G0008; G0378; G0480; J0696; J1644; J1650; J7030; U0003; U0004

== ENCOUNTER 2021-12-14 20:39 | Emergency (ER) | payer OTHER ==
[~2021-12-14] VITALS: Ht 170.2 cm; Wt 126.5 kg
[~2021-12-14 20:39] MED LIST changes: -SPIRONOLACTONE25 MG PO
[2021-12-14] MEDS ORDERED: SPIRONOLACTONE25 MG PO (21:45)
== END 2021-12-14 22:23 | disposition home or self-care (01) ==
LOC: ER 20:39
DX: E83.42 Hypomagnesemia (principal); E87.6 Hypokalemia; I10 Essential (primary) hypertension; Z79.899 Other long term (current) drug therapy; Z87.891 Personal history of nicotine dependence
CPT/HCPCS: 36415; 93005; 93010; 96365; 99283-25; A9270; J3475

== ENCOUNTER → 2021-12-14 | Outpatient (CLI) | payer MEDICARE, OTHER ==
[~2021-12-14] MED LIST changes: +ALBU90OI INH; +ALDACTONE100 MG PO; +AMLO5 PO; +ANASTROZOLE1 M6 PO; +EUTHYROX50 MCG PO; +FURO40 PO; +MIRALAX17 GM PO; +NYSTATIN15 GM TOP; +Omeprazole20 M1 PO; +SPIRONOLACTONE25 MG PO
[2021-12-14 18:16] LABS: BASOPHILS ABSOLUTE AUTO 0.29 K/mm3 (0.00-0.23); BASOPHILS PERCENT AUTO 3 % (0-2); EOSINOPHILS ABSOLUTE AUTO 4.89 K/mm3 (0.00-0.68); EOSINOPHILS PERCENT AUTO 42 % (0-6); Hematocrit 33.2 % (33.0-51.0); Hemoglobin 10.9 g/dL (11.5-16.0); IMMATURE GRAN ABSOLUTE AUTO 0.05 K/mm3 (0.00-0.10); IMMATURE GRAN PERCENT AUTO 0 % (0-1); LYMPHOCYTES ABSOLUTE AUTO 2.07 K/mm3 (0.84-5.20); LYMPHOCYTES PERCENT AUTO 18 % (21-46); MONOCYTES ABSOLUTE AUTO 1.15 K/mm3 (0.16-1.47); MONOCYTES PERCENT AUTO 10 % (4-13); Mean Corpuscular HGB 32.3 pg (26.0-34.0); Mean Corpuscular HGB Conc 32.8 g/dL (31.5-36.5); Mean Corpuscular Volume 99 fL (80-100); Mean Platelet Volume 9.5 fL (9.1-12.4); NEUTROPHILS ABSOLUTE AUTO 3.16 K/mm3 (1.96-9.15); NEUTROPHILS PERCENT AUTO 27 % (41-73); Platelet Count 135 K/mm3 (150-400); RDW Coefficient Variation 17.3 % (11.7-14.2); RDW Standard Deviation 61.3 fL (35.1-46.3); Red Blood Cell Count 3.37 M/mm3 (3.80-5.20); White Blood Cell Count 11.61 K/mm3 (4.00-11.30)
[2021-12-14 18:28] LABS: Albumin/Globulin Ratio 0.4 (0.8-1.8); Bilirubin, Total 1.6 mg/dL (0.1-1.0); Bun/Creatinine Ratio 8.3 (12.0-20.0); Calcium, Blood 7.8 mg/dL (8.5-10.1); Creatinine, Blood 1.08 mg/dL (0.40-1.00); Globulin, Blood 5.4 g/dL (2.2-4.0); Total Protein, Blood 7.4 g/dL (6.4-8.2)
[2021-12-14 18:30] LABS: International Normalized Ratio 1.56; Prothrombin Time Results 15.9 Sec (9.7-11.5)
[2021-12-14 19:37] LABS: BASOPHILS ABSOLUTE MAN 0.46 K/mm3 (0.00-0.23); BASOPHILS PERCENT MAN 4 % (0-2); EOSINOPHILS ABSOLUTE MAN 5.92 K/mm3 (0.00-0.68); EOSINOPHILS PERCENT MAN 51 % (0-6); LYMPHOCYTES ABSOLUTE MAN 0.81 K/mm3 (0.84-5.20); LYMPHOCYTES PERCENT MAN 7 % (21-46); MONOCYTES PERCENT MAN 0 % (4-13); NEUTROPHILS ABSOLUTE MAN 4.41 K/mm3 (1.96-9.15); SEG NEUTROPHILS PERCENT MAN 38 % (41-73); TOTAL CELLS COUNTED 100
== END | disposition home or self-care (01) ==
LOC: LAB SHORT 13:25
PROVIDERS: Family Medicine
DX: I10 Essential (primary) hypertension (principal); E78.1 Pure hyperglyceridemia; K70.30 Alcoholic cirrhosis of liver without ascites; R22.43 Localized swelling, mass and lump, lower limb, bilateral; E87.1 Hypo-osmolality and hyponatremia; D50.9 Iron deficiency anemia, unspecified
CPT/HCPCS: 80053; 83735; 85025; 85610

== ENCOUNTER → 2022-01-05 | Outpatient (CLI) | payer MEDICARE, OTHER ==
[~2022-01-05] MED LIST changes: +Amoxicillin500 M1 PO; +FURO20 PO; +MAGNESIUM OXID500 MG PO; +SPIRONOLACTONE25 MG PO
[2022-01-05 16:53] LABS: BASOPHILS ABSOLUTE AUTO 0.19 K/mm3 (0.00-0.23); BASOPHILS PERCENT AUTO 3 % (0-2); EOSINOPHILS ABSOLUTE AUTO 1.49 K/mm3 (0.00-0.68); EOSINOPHILS PERCENT AUTO 21 % (0-6); Hematocrit 32.7 % (33.0-51.0); Hemoglobin 10.3 g/dL (11.5-16.0); IMMATURE GRAN ABSOLUTE AUTO 0.05 K/mm3 (0.00-0.10); IMMATURE GRAN PERCENT AUTO 1 % (0-1); LYMPHOCYTES ABSOLUTE AUTO 1.82 K/mm3 (0.84-5.20); LYMPHOCYTES PERCENT AUTO 26 % (21-46); MONOCYTES ABSOLUTE AUTO 0.91 K/mm3 (0.16-1.47); MONOCYTES PERCENT AUTO 13 % (4-13); Mean Corpuscular HGB 31.5 pg (26.0-34.0); Mean Corpuscular HGB Conc 31.5 g/dL (31.5-36.5); Mean Corpuscular Volume 100 fL (80-100); NEUTROPHILS ABSOLUTE AUTO 2.65 K/mm3 (1.96-9.15); NEUTROPHILS PERCENT AUTO 37 % (41-73); Platelet Count 160 K/mm3 (150-400); RDW Coefficient Variation 20.3 % (11.7-14.2); RDW Standard Deviation 73.3 fL (35.1-46.3); Red Blood Cell Count 3.27 M/mm3 (3.80-5.20); White Blood Cell Count 7.11 K/mm3 (4.00-11.30)
[2022-01-05 17:28] LABS: Bun/Creatinine Ratio 9.9 (12.0-20.0); Creatinine, Blood 1.01 mg/dL (0.40-1.00); Magnesium, Blood 1.3 mg/dL (1.6-2.4); Potassium, Blood 4.2 mmol/L (3.5-5.5)
== END | disposition home or self-care (01) ==
LOC: LAB 14:20 → LAB SHORT 14:20
PROVIDERS: Family Medicine
DX: D64.9 Anemia, unspecified (principal); E83.42 Hypomagnesemia; I50.9 Heart failure, unspecified
CPT/HCPCS: 80048; 82728; 82746; 83540; 83550; 83735; 83880; 85025

== ENCOUNTER → 2022-03-30 | Outpatient (CLI) | payer OTHER | END | disposition home or self-care (01) | LOC: LAB SHORT 15:30 | DX: R39.0 Extravasation of urine (principal) | CPT/HCPCS: 87086 ==

== ENCOUNTER → 2023-02-10 | Outpatient (CLI) | payer OTHER ==
[2023-02-11 13:53] LABS: Stool Occult Bld Immuno 1 Negative (NEGATIVE)
== END | disposition home or self-care (01) ==
LOC: LAB SHORT 15:29 → LAB 15:29
PROVIDERS: Family Medicine
DX: K74.60 Unspecified cirrhosis of liver (principal); E83.42 Hypomagnesemia; I10 Essential (primary) hypertension; R73.01 Impaired fasting glucose
CPT/HCPCS: G0328

== ENCOUNTER 2025-01-17 16:30 | Emergency (ER) | payer MEDICARE, OTHER ==
[~2025-01-17] VITALS: Ht 170.2 cm; Wt 104.3 kg
[2025-01-17 17:09] VITALS: BP 151/104
[2025-01-17 18:04] LABS: BASOPHILS ABSOLUTE AUTO 0.19 K/mm3 (0.00-0.23); BASOPHILS PERCENT AUTO 2 % (0-2); EOSINOPHILS ABSOLUTE AUTO 0.11 K/mm3 (0.00-0.68); EOSINOPHILS PERCENT AUTO 1 % (0-6); Hematocrit 40.8 % (33.0-51.0); Hemoglobin 14.2 g/dL (11.5-16.0); IMMATURE GRAN ABSOLUTE AUTO 0.18 K/mm3 (0.00-0.10); IMMATURE GRAN PERCENT AUTO 2 % (0-1); LYMPHOCYTES ABSOLUTE AUTO 1.32 K/mm3 (0.84-5.20); LYMPHOCYTES PERCENT AUTO 15 % (21-46); MONOCYTES ABSOLUTE AUTO 0.79 K/mm3 (0.16-1.47); MONOCYTES PERCENT AUTO 9 % (4-13); Mean Corpuscular HGB 39.1 pg (26.0-34.0); Mean Corpuscular HGB Conc 34.8 g/dL (31.5-36.5); Mean Corpuscular Volume 112 fL (80-100); Mean Platelet Volume 8.5 fL (9.1-12.4); NEUTROPHILS ABSOLUTE AUTO 6.17 K/mm3 (1.96-9.15); NEUTROPHILS PERCENT AUTO 70 % (41-73); Platelet Count 173 K/mm3 (150-400); RDW Coefficient Variation 13.9 % (11.7-14.2); RDW Standard Deviation 58.4 fL (35.1-46.3); Red Blood Cell Count 3.63 M/mm3 (3.80-5.20); White Blood Cell Count 8.76 K/mm3 (4.00-11.30)
[2025-01-17 18:40] LABS: Albumin, Blood 2.6 g/dL (3.4-5.0); Albumin/Globulin Ratio 0.6 (0.8-1.8); Bilirubin, Total 1.7 mg/dL (0.1-1.0); Calcium, Blood 9.2 mg/dL (8.5-10.1); Globulin, Blood 4.1 g/dL (2.2-4.0); Magnesium, Blood 1.9 mg/dL (1.6-2.4); Total Protein, Blood 6.7 g/dL (6.4-8.2)
== END 2025-01-17 18:57 | disposition home or self-care (01) ==
LOC: ER 16:30
PROVIDERS: Emergency Medicine
DX: E87.1 Hypo-osmolality and hyponatremia (principal); I10 Essential (primary) hypertension; Z87.891 Personal history of nicotine dependence; Z79.899 Other long term (current) drug therapy
CPT/HCPCS: 80053; 83735; 83930; 85025; 99283